=== PATIENT | male | born 1950 | race Caucasian/White ===

== ENCOUNTER 2016-09-20 13:20 | Outpatient (CLI) | payer OTHER ==
[2015-08-31 13:58] VITALS: BP 187/88
[2016-09-20 14:14] LABS: eGFR (African) > 60; eGFR (Non-African) > 60
== END 2016-09-20 13:30 ==
LOC: LAB 13:20
PROVIDERS: ATTEND Family Medicine
DX: I10 Essential (primary) hypertension (principal)
CPT/HCPCS: 36415; 80053

== ENCOUNTER 2016-10-07 13:11 | Outpatient (CLI) | payer OTHER ==
[2015-08-31 13:58] VITALS: BP 187/88
== END 2016-10-07 13:15 ==
LOC: LAB 13:11
PROVIDERS: ATTEND Family Medicine
DX: R73.9 Hyperglycemia, unspecified (principal); Z51.81 Encounter for therapeutic drug level monitoring; Z79.01 Long term (current) use of anticoagulants; I48.91 Unspecified atrial fibrillation
CPT/HCPCS: 36415; 83036; 85610

== ENCOUNTER 2016-12-18 13:23 | Outpatient (CLI) | payer OTHER ==
[2015-08-31 13:58] VITALS: BP 187/88
== END 2016-12-18 13:24 ==
LOC: LAB 13:23
PROVIDERS: ATTEND Family Medicine
DX: Z51.81 Encounter for therapeutic drug level monitoring (principal); Z79.01 Long term (current) use of anticoagulants; I48.91 Unspecified atrial fibrillation
CPT/HCPCS: 36415; 85610

== ENCOUNTER 2017-03-17 11:35 | Outpatient (CLI) | payer OTHER ==
[2015-08-31 13:58] VITALS: BP 187/88
== END 2017-03-17 11:36 ==
LOC: LAB 11:35
PROVIDERS: ATTEND Family Medicine
DX: I48.91 Unspecified atrial fibrillation (principal); Z79.01 Long term (current) use of anticoagulants
CPT/HCPCS: 36415; 85610

== ENCOUNTER 2017-06-16 15:06 | Outpatient (CLI) | payer OTHER ==
[2015-08-31 13:58] VITALS: BP 187/88
== END 2017-06-16 15:07 ==
LOC: LAB 15:06
PROVIDERS: ATTEND Family Medicine
DX: I48.91 Unspecified atrial fibrillation (principal); Z79.01 Long term (current) use of anticoagulants
CPT/HCPCS: 36415; 85610

== ENCOUNTER 2017-08-04 14:49 | Outpatient (CLI) | payer OTHER ==
[2015-08-31 13:58] VITALS: BP 187/88
== END 2017-08-04 14:50 ==
LOC: LAB 14:49
PROVIDERS: ATTEND Family Medicine
DX: I48.91 Unspecified atrial fibrillation (principal); Z79.01 Long term (current) use of anticoagulants
CPT/HCPCS: 36415; 85610

== ENCOUNTER 2017-10-13 13:37 | Outpatient (CLI) | payer OTHER ==
[2015-08-31 13:58] VITALS: BP 187/88
[2017-10-13 14:27] LABS: eGFR (African) > 60; eGFR (Non-African) > 60
== END 2017-10-13 13:40 ==
LOC: LAB 13:37
PROVIDERS: ATTEND Family Medicine
DX: I10 Essential (primary) hypertension (principal); R73.9 Hyperglycemia, unspecified; I48.91 Unspecified atrial fibrillation
CPT/HCPCS: 36415; 80053; 80061; 83036; 85610

== ENCOUNTER 2017-11-11 10:48 | Outpatient (CLI) | payer OTHER ==
[2015-08-31 13:58] VITALS: BP 187/88
== END 2017-11-11 10:50 ==
LOC: LAB 10:48
PROVIDERS: ATTEND Family Medicine
DX: I48.91 Unspecified atrial fibrillation (principal); Z79.01 Long term (current) use of anticoagulants
CPT/HCPCS: 36415; 85610

== ENCOUNTER 2017-12-16 12:35 | Outpatient (CLI) | payer OTHER ==
[2015-08-31 13:58] VITALS: BP 187/88
== END 2017-12-16 12:36 ==
LOC: LAB 12:35
PROVIDERS: ATTEND Family Medicine
DX: I48.91 Unspecified atrial fibrillation (principal); Z79.01 Long term (current) use of anticoagulants
CPT/HCPCS: 36415; 85610

== ENCOUNTER 2018-03-10 13:14 | Outpatient (CLI) | payer OTHER ==
[2015-08-31 13:58] VITALS: BP 187/88
== END 2018-03-10 13:15 ==
LOC: LAB 13:14
PROVIDERS: ATTEND Family Medicine
DX: I48.91 Unspecified atrial fibrillation (principal); Z79.01 Long term (current) use of anticoagulants
CPT/HCPCS: 36415; 85610

== ENCOUNTER 2018-07-20 14:00 | Outpatient (CLI) | payer OTHER ==
[2015-08-31 13:58] VITALS: BP 187/88
== END 2018-07-20 14:02 ==
LOC: LAB 14:00
PROVIDERS: ATTEND Family Medicine
DX: I48.91 Unspecified atrial fibrillation (principal); Z79.01 Long term (current) use of anticoagulants
CPT/HCPCS: 36415; 85610

== ENCOUNTER 2018-10-05 13:33 | Outpatient (CLI) | payer OTHER ==
[2015-08-31 13:58] VITALS: BP 187/88
[2018-10-05 14:08] LABS: eGFR (Non-African) > 60
== END 2018-10-05 13:34 ==
LOC: LAB 13:33
PROVIDERS: ATTEND Family Medicine
DX: I10 Essential (primary) hypertension (principal)
CPT/HCPCS: 36415; 80053; 80061